=== PATIENT | male | born 1995 | race Caucasian/White ===

== ENCOUNTER 2017-06-30 18:01 | Emergency (ER) | payer OTHER | END 2017-06-30 19:44 | disposition home or self-care (01) | LOC: D.ER 18:01 | DX: S80.01XA Contusion of right knee, initial encounter (principal); W22.8XXA Striking against or struck by other objects, initial encounter; Y93.89 Activity, other specified; Y92.019 Unspecified place in single-family (private) house as the place of occurrence of the external cause; M32.9 Systemic lupus erythematosus, unspecified ==